=== PATIENT | female | born 1985 | race Caucasian/White ===

== ENCOUNTER → 2017-12-19 | Day surgery (SDC) | payer OTHER ==
[~2017-12-19] MED LIST: ACYC400T PO; ATOM40CA PO; CETI10TA16 PO; ESTROTEST; IV RINGERS,LACTATED 1000ML 1,000 ML IV SCH; LIDOCAINE 1% PF 2 ML VIAL. ID PRN; MIDAZOLAM HCL/PF 2 MG/2 ML VIAL. IV PRN; OMEP20TA8 PO; PROPOFOL 40 ML IV ONE; VERA240C2 PO; fentaNYL PF VIAL 100 MCG/2 ML VIAL IV PRN
[2017-12-19 07:57] VITALS: BP 116/65
== END | disposition home or self-care (01) ==
LOC: SURG 06:17
PROVIDERS: ATTEND Internal Medicine Gastroenterology
DX: K64.0 First degree hemorrhoids (principal); F41.9 Anxiety disorder, unspecified; F32.9 Major depressive disorder, single episode, unspecified; K21.9 Gastro-esophageal reflux disease without esophagitis; Z80.0 Family history of malignant neoplasm of digestive organs; Z88.5 Allergy status to narcotic agent; Z85.43 Personal history of malignant neoplasm of ovary; Z83.3 Family history of diabetes mellitus; Z82.49 Family history of ischemic heart disease and other diseases of the circulatory system; Z72.89 Other problems related to lifestyle; Z72.0 Tobacco use; Z79.899 Other long term (current) drug therapy; Z90.49 Acquired absence of other specified parts of digestive tract; Z90.710 Acquired absence of both cervix and uterus; Z98.890 Other specified postprocedural states
CPT/HCPCS: 45378; J2704